=== PATIENT | female | born 1960 | race Asian ===

== ENCOUNTER 2023-06-06 12:52 | Outpatient (AMB) | payer MEDICAID, SELFPAY ==
--- NOTE | 2023-06-06 13:01 | A.OFFVIS_ITS ---
Intake Vital Signs 06/06/23 13:03 Weight 136 lb 8 oz BP 130/80 Blood Pressure Location Rt brachial Position Sitting Respiration 15 Pulse 83 Pulse Source Pulse Oximeter Pulse Oximetry (%) 99 Oxygen Delivery Method Room Air Intake Visit Reasons: [employer] MENINGIOMA/CEREBRAL Intake Note: Pt presents to the office for new pt evaluation for Meningioma. She states she gets occasional headaches on the top of the head that can radiate towards right ear. Allergies No Known Allergies Allergy (Verified 06/06/23 13:07) Medication List - Last Reconciled 06/06/23 by Sophia Liu MD atorvastatin 40 mg PO DAILY esomeprazole magnesium 40 mg PO DAILY ferrous sulfate 325 mg PO DAILY gabapentin 600 mg PO BEDTIME loratadine (Allergy Relief (loratadine)) 10 mg PO DAILY losartan 25 mg PO DAILY mecobalamin (vitamin B12) 1,000 mcg PO DAILY thiamine HCl (vitamin B1) 100 mg PO DAILY HPI HPI Comments History of Present Illness Details 62y/o female comes for neurological eval uation. ABout 3-4 years ago she had MRI brain - not clear what the symptoms were but she was found to have meningioma and had resection. SHe is here to follow up . Her main symptoms are headaches and tinnitus since her surgery .The headaches are frontal and parietal throbbing pain and has tinnitus.The pain is mild 4/10. No neck pain. she denies nausea, vomiting, light or noise sensitivity.. [facility] Medical History (Updated 06/06/23 @ 13:35 by Sophia Liu MD) Cervicogenic headache Cervicalgia Meningioma Thyroid nodule Cataract TB lung, latent Back pain Sciatica Hypothyroid Hyperlipidemia GERD (gastroesophageal reflux disease) HTN (hypertension) Surgical History H/O: hysterectomy History of intestinal surgery History of surgery of head Family History Brother HTN (hypertension) Sister HTN (hypertension) Social History Household Members: Family Housing: House Alcohol intake: never Patient Tobacco Use Status: Never used Tobacco Use of substances other than those prescribed or required for medical reasons: No Review of Systems Const Reports no additional complaints and Reports headache(s) ENT Reports headache(s) Neuro Reports headache(s) Physical Exam Vital Signs: Last Vital Signs Pulse 83 06/06/23 13:03 Resp 15 06/06/23 13:03 BP 130/80 06/06/23 13:03 Pulse Ox 99 06/06/23 13:03 Oxygen Delivery Method Room Air 06/06/23 13:03 Const General: cooperative, healthy appearing and comfortable Nutritional Appearance: average body habitus Orientation/consciousness: patient oriented x3 Eyes Pupils: Equal, round and reactive pupils present Neck Other: antecollis, tight lateral neck muscles Neuro General: patient oriented x3, gait normal, tone normal, moves all extremities and no focal motor deficits Cranial nerves: Yes Facial sensation intact/muscles of mastication intact, Yes Equal, round and reactive pupils present, Yes Bilaterally intact EOM present, Yes Nystagmus not present, Yes Normal facial strength present, Yes Midline tongue present and Yes Ability to bilaterally elevate shoulders present Cognition (Neuro): normal cognition Gait exam (Neuro): Normal gait present Motor exam (neuro): 5/5 motor strength present throughout and Normal motor muscle tone present throughout Deep tendon reflexes (DTR's): Right triceps reflex intensity grade: 1+, Left triceps reflex intensity grade: 1+, Rt Biceps (C5, C6): 1+, Left biceps reflex intensity grade: 1+, Right brachioradialis reflex intensity grade: 1+, Left brachioradialis reflex intensity grade: 1+, Right patellar reflex intensity grade: 1+ and Left patellar reflex intensity grade: 1+ Coordination: [id number] test normal Assessment & Plan Assessment & Plan (1) Meningioma: Code(s): D32.9 - Benign neoplasm of meninges, unspecified (2) Cervicalgia: Code(s): M54.2 - Cervicalgia (3) Cervicogenic headache: Code(s): G44.86 - Cervicogenic headache Plan MRI Brain to evaluate meningioma PT for neck I will trial her on magnesium 400mg qhs Orders: Orders PT Evaluation and Treatment Today M54.2 - Cervicalgia MR head/brain wo/w con Today D32.9 - Benign neoplasm of meninges, unspecified Medications: New magnesium oxide 400 mg PO BEDTIME 30 tabs 6RF Coding Level of Care Code New Pt Level 4 (32849) Diagnoses Meningioma D32.9 Cervicalgia M54.2 Cervicogenic headache G44.86
[2023-06-06 13:03] VITALS: BP 130/80; PULSE 83; RESP 15; O2SAT 99
== END 2023-06-06 13:46 | disposition home or self-care (01) ==
PROVIDERS: Visit Provider Psychiatry & Neurology Neurology
DX: D32.9 Benign neoplasm of meninges, unspecified (principal); M54.2 Cervicalgia; G44.86 Cervicogenic headache
CPT/HCPCS: 99204

== ENCOUNTER → 2023-06-06 12:52 | Outpatient (BNVA) | payer MEDICAID, SELFPAY | PROVIDERS: Visit Provider Psychiatry & Neurology Neurology ==

== ENCOUNTER 2023-07-17 13:31 | Outpatient (REF) | payer MEDICAID, SELFPAY ==
--- NOTE | ~2023-07-17 | MR_ITS ---
EXAMINATION: MR BRAIN WITHOUT AND WITH CONTRAST CLINICAL INFORMATION: Benign neoplasm of meninges, unspecified. COMPARISON: None available. TECHNIQUE: Multiplanar, multisequence MRI of the brain was obtained before and after the intravenous administration of 6 mL Gadavist. FINDINGS: No abnormal intraparenchymal enhancement. There is a 9 x 8 mm homogeneously enhancing mass along the left aspect of the anterior falx. Minimal mass effect is seen on the subjacent brain parenchyma. No acute intracranial hemorrhage or infarct. Few scattered and confluent periventricular white matter T2/FLAIR hyperintensities, nonspecific however commonly seen with small vessel ischemic disease. Diffuse prominence of the sulci with associated mild ex vacuo dilation of the ventricles compatible with global cerebral atrophy. No midline shift or hydrocephalus. No acute extra-axial fluid collections. The osseous structures are unremarkable. Enlarged and partially empty sella. The pineal gland and remaining midline structures are unremarkable. No orbital pathology. Mucosal thickening of the paranasal sinuses. The mastoid air cells are clear. MR/MR head/brain wo/w con IMPRESSION: -No acute intracranial abnormalities. -9 mm left anterior parafalcine meningioma. -Nonspecific enlarged and partially empty sella.
[2023-07-17] MEDS: gadobutroL 7.5 ML VIAL IVPUSH (14:43)
== END 2023-07-17 13:32 | disposition home or self-care (01) ==
LOC: HO.MRI 13:31
PROVIDERS: PCP Nurse Practitioner Family; Visit Provider Psychiatry & Neurology Neurology
DX: D32.9 Benign neoplasm of meninges, unspecified (principal)
CPT/HCPCS: 70553; A9585